=== PATIENT | male | born 1980 | race Caucasian/White ===

== ENCOUNTER 2018-05-31 12:41 | Outpatient (CLI) | payer BC | END 2018-05-31 12:42 | disposition home or self-care (01) | LOC: DTY/OP 12:41 | PROVIDERS: ATTEND Surgery | DX: E66.01 Morbid (severe) obesity due to excess calories (principal); Z98.84 Bariatric surgery status | CPT/HCPCS: 97802 ==

== ENCOUNTER 2019-05-03 10:30 | Outpatient (CLI) | payer BC | END 2019-05-03 10:31 | disposition home or self-care (01) | LOC: DTY/OP 10:30 | PROVIDERS: ATTEND Family Medicine | DX: E66.01 Morbid (severe) obesity due to excess calories (principal) | CPT/HCPCS: 97802 ==

== ENCOUNTER 2022-01-15 12:47 | Outpatient (CLI) | payer BC | END 2022-01-15 12:48 | disposition home or self-care (01) | LOC: DTY/OP 12:47 | PROVIDERS: ATTEND Surgery | DX: E66.01 Morbid (severe) obesity due to excess calories (principal) | CPT/HCPCS: 97802 ==

== ENCOUNTER 2022-08-13 11:00 | Inpatient (IN) | payer BC ==
[2022-08-18] MEDS ORDERED: Sodium Chloride 0.9% 100 ML ONE (07:43)
[2022-08-18] MEDS ORDERED: Lidocaine 1% MPF 2 ML VIAL ONE (07:43)
[2022-08-18] MEDS ORDERED: CEFAZOLIN 2 GM VIAL ONE (07:43)
[2022-08-18 09:08] LABS: SARS-CoV-2 NAA Rapid Test Not Detected (NotDetected)
[2022-08-18] MEDS ORDERED: fentaNYL Citrate/PF 100 MCG/2 ML SYRINGE ONE (09:08)
[2022-08-18] MEDS ORDERED: SUGAMMADEX SODIUM 200 MG/2 ML VIAL ONE (09:09)
[2022-08-18] MEDS ORDERED: Midazolam HCl 2 mg/2 ml Vial ONE (09:18)
[2022-08-18] MEDS ORDERED: HYDROmorphone 0.5 MG/0.5 ML SYRINGE ONE (09:18)
[2022-08-18] MEDS ORDERED: Bupivacaine/Epinephrine 0.25% 30 ML VIAL ONE (09:19)
[2022-08-18] MEDS ORDERED: EPINEPHrine 1 MG/ML AMP ONE (09:19)
[2022-08-18] MEDS ORDERED: Dexamethasone 20 MG/5 ML VIAL ONE (09:37)
[2022-08-18] MEDS ORDERED: PROPOFOL 200 MG/20 ML VIAL ONE (09:37)
[2022-08-18] MEDS ORDERED: Glycopyrrolate 0.2 MG/ML 5 ML SYRINGE ONE (09:37)
[2022-08-18] MEDS ORDERED: Rocuronium Bromide 10 MG/ML (10ML VIAL) ONE (09:37)
[2022-08-18] MEDS ORDERED: Ondansetron PF 4 MG/2 ML Vial ONE (09:37)
[2022-08-18] MEDS ORDERED: ePHEDrine 50 MG/ML VIAL ONE (09:37)
[2022-08-18] MEDS ORDERED: Ketorolac Tromethamine 30 MG/ML VIAL ONE (09:37)
[2022-08-18] MEDS ORDERED: Hydrocodone-Acetamin 15 ML UDCUP PO PRN (11:08)
[2022-08-18] MEDS ORDERED: hydrALAZINE 20 MG/ML VIAL SLOW IVP PRN (11:08)
[2022-08-18] MEDS ORDERED: diphenhydrAMINE 50 MG/ML VIAL IVP PRN ×2 (11:08→11:26)
[2022-08-18] MEDS ORDERED: Dextrose 5% in Water 1,000 ML IV PRN (11:08)
[2022-08-18] MEDS ORDERED: Promethazine HCl 25 MG/ML VIAL IM PRN ×3 (11:08→11:26)
[2022-08-18] MEDS ORDERED: Dextrose 50% Abboject 50 ML SYRINGE SLOW IVP PRN (11:08)
[2022-08-18] MEDS ORDERED: Ondansetron PF 4 MG/2 ML Vial IVP PRN ×2 (11:08→11:26)
[2022-08-18] MEDS ORDERED: Promethazine HCl 25 MG/ML VIAL IVPB PRN (11:26)
[2022-08-18] MEDS ORDERED: Ondansetron HCl/PF 4 MG/2 ML Vial IVP PRN (11:26)
[2022-08-18] MEDS ORDERED: diphenhydrAMINE 25 MG CAP PO PRN (11:26)
[2022-08-18] MEDS ORDERED: FENTANYL 500 MCG/10 ML VIAL 2,000 MCG in Sodium Chloride 0.9% 60 ML IV PRN (11:26)
[2022-08-18] MEDS ORDERED: Zolpidem Tartrate 5 MG TAB PO PRN (11:26)
[2022-08-18] MEDS ORDERED: Naloxone HCl 0.4 mg/ml Vial IV PRN (11:26)
[2022-08-18] MEDS ORDERED: diphenhydrAMINE 50 MG/ML VIAL IM PRN (11:26)
[2022-08-18] MEDS ORDERED: Communication Order-Pharmacy FS PRN (11:30)
[2022-08-18] MEDS ORDERED: FENTANYL 50 MCG/ML VIAL 50 MCG/ML VIAL ONE (11:35)
[2022-08-18 12:57] VITALS: BMI 56.9
[2022-08-18] MEDS: Ketorolac Tromethamine 30 MG/ML VIAL IVP SCH ×3 (13:11→17:42)
[2022-08-18] MEDS: D5 1/2 NS w/20 mEq KCL 1,000 ML IV SCH ×2 (13:15→21:53)
[2022-08-18] MEDS: CEFAZOLIN 2 GM in Sodium Chloride 0.9% 100 ML IVPB SCH (15:52)
[2022-08-18] MEDS ORDERED: FLU VACC QS2022-23(6MOS UP)/PF 60 MCG/0.5 ML SYRINGE IM ONE (18:00)
[2022-08-19] MEDS: Ketorolac Tromethamine 30 MG/ML VIAL IVP SCH ×3 (00:06→13:54)
[2022-08-19] MEDS: CEFAZOLIN 2 GM in Sodium Chloride 0.9% 100 ML IVPB SCH (00:06)
[2022-08-19] MEDS: D5 1/2 NS w/20 mEq KCL 1,000 ML IV SCH ×2 (03:15→13:54)
[2022-08-19] MEDS ORDERED: Hydrocodone-Acetamin 15 ML UDCUP PO PRN (05:37)
[2022-08-19 06:09] LABS: #Lymphocytes 1.7 thou/uL (1.20-3.40); #Neutrophils 10.3 thou/uL (1.40-6.50); %Basophils 0.1 % (0.0-1.0); %Eosinophils 0.1 % (0.0-10.0); %Lymphocytes 12.8 % (21.0-51.0); %Monocytes 7.6 % (0.0-10.0); %Neutrophils 79.6 % (42.0-75.0); Hemoglobin 16.1 g/dL (14.0-18.0); Mean Corpuscular HGB CONC 33.3 g/dL (32.0-36.0); Mean Corpuscular Hemoglobin 32.6 pg (27.0-31.0); Mean Corpuscular Volume 97.8 fl (78.0-98.0); Mean Platelet Volume 8.4 fL (7.4-10.4); Platelet Count 220 thou/uL (130-400); RBC Distribution Width 12.9 % (11.5-14.5); Red Blood Cell (RBC) Count 4.94 mill/uL (4.70-6.10); White Blood Cell (WBC) Count 12.9 thou/uL (4.8-10.8)
[2022-08-19 06:27] LABS: Anion Gap 13 mmol/L (10-20); BUN (Urea Nitrogen) 10 mg/dL (8.9-20.6); Calc. Creatinine Clearance 248 mL/min (70-130); Calcium 8.9 mg/dL (7.8-10.44); Carbon Dioxide 22 mmol/L (22-29); Chloride 106 mmol/L (98-107); Estimated GFR 101; Glucose 123 mg/dL (70-105); Potassium 4.1 mmol/L (3.5-5.1); Sodium 137 mmol/L (136-145)
[2022-08-19] MEDS ORDERED: Pantoprazole 40 MG VIAL IVP SCH (09:00)
[2022-08-19] MEDS ORDERED: Enoxaparin Sodium 40 MG/0.4 ML SYRINGE SC SCH (09:00)
[2022-08-19 11:50] VITALS: BP 133/80; TEMP 98.4
== END 2022-08-19 14:00 | disposition home or self-care (01) | DRG 621 ==
LOC: SURG A 08-18 06:43
PROVIDERS: ADMIT Surgery; ATTEND Surgery
PROC: 0DB64Z3 Excision of Stomach, Percutaneous Endoscopic Approach, Vertical (ICD-10-PCS; principal; 2022-08-18)
DX: E66.01 Morbid (severe) obesity due to excess calories (principal); Z68.43 Body mass index [BMI] 50.0-59.9, adult; Z20.822 Contact with and (suspected) exposure to COVID-19; Z87.891 Personal history of nicotine dependence; Z87.19 Personal history of other diseases of the digestive system
CPT/HCPCS: 36415; 80048; 85025; 88307; 90471; 90686; 94760; C1713; C9113; G0008; J0171; J1100; J1170; J1650; J1885; J2250; J2405; J2704; J3480; J3490; U0002